=== PATIENT | male | born 1945 | race Caucasian/White ===

== ENCOUNTER 2019-02-12 23:32 | Observation (INO) | payer MEDICARE, OTHER ==
[2019-02-13 01:30] LABS: ADD MAN DIFF? NO
[2019-02-13] MEDS: NITROGLYCERIN 2% 1 GM OINT PKT TD (01:31)
[2019-02-13] MEDS: ASPIRIN 325 MG TAB PO (01:31)
[2019-02-13 01:33] LABS: WHITE BLOOD COUNT 12.2 10^3/ul (4.8-10.8)
[2019-02-13 01:33] LABS: BASOPHILS % 0.2 % (0.0-2.0); EOSINOPHILS # 0.1 10^3/ul (0.0-0.5); EOSINOPHILS % 0.9 % (0.0-7.0); HEMOGLOBIN 15.5 g/dl (14.0-18.0); LYMPHOCYTES # 2.6 10^3/ul (0.8-2.9); LYMPHOCYTES % 21.3 % (15.0-51.0); MEAN CORPUSCULAR HEMOGLOBIN 28.5 pg (29.0-33.0); MEAN CORPUSCULAR HGB CONC 31.6 g/dl (32.0-37.0); MEAN CORPUSCULAR VOLUME 90.2 fl (82.0-101.0); MEAN PLATELET VOLUME 10.2 fl (7.4-10.4); MONOCYTE # 1.4 10^3/ul (0.3-0.9); MONOCYTES % 11.6 % (0.0-11.0); NEUTROPHILS % 65.5 % (39.0-77.0); PLATELET COUNT 212 10^3/UL (140-415); RED BLOOD COUNT 5.43 10^6/ul (4.70-6.10); RED CELL DISTRIBUTION WIDTH 12.7 % (11.5-14.5)
[2019-02-13 01:54] LABS: PARTIAL THROMBOPLASTIN TIME 28.7 Sec (23.0-35.0)
[2019-02-13 01:55] LABS: ANION GAP 14 (5-13); BLOOD UREA NITROGEN 24 mg/dl (7-20); CALCIUM 9.8 mg/dl (8.4-10.2); CARBON DIOXIDE 27 mmol/L (21-31); CHLORIDE 97 mmol/L (97-110); CREATININE 1.28 mg/dl (0.61-1.24); GLUCOSE 184 mg/dl (70-220); POTASSIUM 4.1 mmol/L (3.5-5.1); SODIUM 138 mmol/L (135-144)
[2019-02-13 02:01] LABS: INR 0.89; PROTIME 12.1 Sec (11.9-14.9); PT RATIO 0.9
[2019-02-13 02:06] LABS: B-TYPE NATRIURETIC PEPTIDE 115 PG/ML (0-125); TROPONIN-I 0.025 ng/ml (0.000-0.120)
[2019-02-13] MEDS: SOD CHLORIDE 0.9% 1,000 ML IV (02:27)
[2019-02-13] MEDS: IODIXANOL LOCM 50 ML BTL (02:52)
[2019-02-13] MEDS: SOD CHLORIDE 0.9% 100 ML (02:52)
[2019-02-13] MEDS: IODIXANOL LOCM 100 ML BTL (02:52)
[2019-02-13] MEDS ORDERED: ACETAMINOPHEN 325 MG TAB PO ×2 (05:00→07:00)
[2019-02-13] MEDS ORDERED: ONDANSETRON 4 MG INJ IV ×2 (05:00→07:00)
[2019-02-13] MEDS ORDERED: NITROGLYCERIN (SL) 0.4 MG TAB SL (07:00)
[2019-02-13] MEDS ORDERED: ALBUTEROL/IPRATROPIUM (NEB) 3 ML AMP HHN (07:00)
[2019-02-13] MEDS ORDERED: NACL 0.9% 3 ML SYG IV (07:00)
[2019-02-13 08:28] LABS: CREATINE KINASE 67 IU/L (23-200)
[2019-02-13] MEDS: [UNRECOGNIZED DRUG - REMARK] XX ×2 (08:30→16:30)
[2019-02-13 08:39] LABS: CK INDEX 2.3; CK-MB 1.52 ng/ml (0.0-2.4); TROPONIN-I 0.021 ng/ml (0.000-0.120)
[2019-02-13] MEDS: metFORMIN 500 MG TAB PO (08:44)
[2019-02-13] MEDS: LINAGLIPTIN 5 MG TABLET PO (08:44)
[2019-02-13] MEDS: CYANOCOBALAMIN 500 MCG TAB PO (08:45)
[2019-02-13] MEDS: LOSARTAN 50 MG TAB PO (08:46)
[2019-02-13] MEDS: ATORVASTATIN 10 MG TAB PO (08:46)
[2019-02-13] MEDS: HEPARIN 5,000 UNIT/1 ML VIAL SC (08:51)
[2019-02-13] MEDS ORDERED: EMPAGLIFLOZIN 25 MG PO (09:00)
[2019-02-13] MEDS ORDERED: GLUCAGON 1 MG INJ IM (09:00)
[2019-02-13] MEDS ORDERED: GLUCOSE GEL 15 GRAM TUBE BUCCAL (09:00)
[2019-02-13] MEDS ORDERED: DEXTROSE 50% 50 ML SYRINGE IV ×2 (09:00)
[2019-02-13] MEDS ORDERED: NON-FORMULARY/PATIENT OWN MED (Ubidecarenone (Coq10) 50 MG) PO (09:00)
[2019-02-13] MEDS ORDERED: GLUCOSE GEL 15 GRAM TUBE PO ×2 (09:00)
[2019-02-13] MEDS: ALLOPURINOL 300 MG TAB PO (09:42)
[2019-02-13] MEDS: INSULIN ASPART [NOVOLOG] 3 ML PEN SC ×2 (11:49→17:25)
[2019-02-13 12:00] LABS: HEMOGLOBIN A1C 6.2 % (0-5.9)
[2019-02-13 14:44] LABS: CREATINE KINASE 59 IU/L (23-200)
[2019-02-13 14:57] LABS: CK INDEX 2.2; CK-MB 1.32 ng/ml (0.0-2.4); TROPONIN-I 0.013 ng/ml (0.000-0.120)
[2019-02-14] MEDS ORDERED: ACCU-CHEK XX (02:00)
[2019-02-14] MEDS ORDERED: INSULIN GLARGINE [LANTus] (100 UNITS/ML) SYG SC (08:00)
== END 2019-02-13 19:09 | disposition home or self-care (01) ==
LOC: E/R 23:32 → TEL 02-13 04:49
PROVIDERS: Internal Medicine
DX: R07.9 Chest pain, unspecified (principal); B34.9 Viral infection, unspecified; I10 Essential (primary) hypertension; E78.00 Pure hypercholesterolemia, unspecified; E78.5 Hyperlipidemia, unspecified; M10.9 Gout, unspecified; E11.9 Type 2 diabetes mellitus without complications
CPT/HCPCS: 36415; 71275; 80048; 82550; 82553; 82962; 83036; 83880; 84484; 85025; 85610; 85730; 93005; 93306; 99285-25; G0378